=== PATIENT | female | born 1980 ===

== ENCOUNTER 2018-09-03 11:26 | Emergency (ER) | payer OTHER ==
[2018-09-03] MEDS ORDERED: Sodium Chloride 0.9% 1,000 ML IV STA (12:27)
[2018-09-03] MEDS ORDERED: Albuterol-Ipratrop 3 mg / 0.5 (3 ml) UD IH STA (12:27)
--- NOTE | 2018-09-03 12:51 | ED PDOC ---
HPI: SOB/CHF/COPD Time Seen by Provider: 09/03/18 11:52 Chief Complaint (Nursing): Shortness Of Breath Chief Complaint (Provider): Shortness Of Breath History Per: Patient History/Exam Limitations: no limitations Onset/Duration Of Symptoms: Days Current Symptoms Are (Timing): Still Present Initiating Event: Exercising/Sports (hike in [place]) Additional Complaint(s): 37 y/o female presents to the ED for evaluation of chest pain and shortness of breath, onset four days ago. Patient reports of returning from [place] this past Friday where she did a strenuous hie in high altitude and has since been experiencing chest congestion and shortness of breath. Patient notes of having developed a cough while on her trip on . Patient additionally notes of having lower extremity swelling while on the long flight back that has since resolved. Otherwise, patient denies numbness, tingling, dizziness, confusion, throat pain, nasal congestion and rhinorrhea. Patient additionally reports of taking diamox (of which she stopped while on the hike), 0.5 mg of a steroid, Suzan and an antibiotic. Patient notes of initially being evaluated at an Urgent Care but was sent here for further evaluation. PMD: no provider Past Medical History Reviewed: Historical Data, Nursing Documentation, Vital Signs Primary Care Provider: FAMILY PROVIDER,NO - Medical History PMH: No Chronic Diseases - Surgical History Surgical History: No Surg Hx - Family History Family History: States: Unknown Family Hx - Living Arrangements Living Arrangements: With Family - Home Medications Home Medications: Ambulatory Orders Medication Instructions Recorded Albuterol Sulfate [Proair Hfa] 0.09 mg IH Q6H PRN #2 inh 09/03/18 Benzonatate [Tessalon Perles] 100 mg PO BID PRN 5 Days sgl 09/03/18 predniSONE [predniSONE Tab] 20 mg PO BID 5 Days tab 09/03/18 - Allergies Allergies/Adverse Reactions: Allergies Allergy/AdvReac Type Severity Reaction Status Date / Time No Known Allergies Allergy Verified 09/03/18 11:46 Review of Systems ROS Statement: Except As Marked, All Systems Reviewed And Found Negative ENT: Negative for: Nose Discharge, Nose Congestion, Throat Pain Cardiovascular: Positive for: Chest Pain (congestion) Respiratory: Positive for: Cough, Shortness of Breath Neurological: Negative for: Numbness (or tingling), Confusion, Dizziness Physical Exam - Reviewed Nursing Documentation Reviewed: Yes Vital Signs Reviewed: Yes - Physical Exam Appears: Positive for: No Acute Distress Head Exam: Positive for: ATRAUMATIC, NORMOCEPHALIC Skin: Positive for: Normal Color, Warm, Dry Eye Exam: Positive for: Normal appearance, EOMI, PERRL ENT: Positive for: Normal ENT Inspection Neck: Positive for: Normal, Painless ROM, Supple Cardiovascular/Chest: Positive for: Regular Rate, Rhythm. Negative for: Murmur Respiratory: Positive for: Normal Breath Sounds. Negative for: Respiratory Distress Gastrointestinal/Abdominal: Positive for: Normal Exam, Soft. Negative for: Tenderness Back: Positive for: Normal Inspection. Negative for: L CVA Tenderness, R CVA Tenderness, Vertebral Tenderness Extremity: Positive for: Normal ROM. Negative for: Pedal Edema, Deformity Neurological/Psych: Positive for: Awake, Alert, Oriented (x3). Negative for: Motor/Sensory Deficits - Laboratory Results Result Diagrams: 09/03/18 12:30 09/03/18 12:30 - ECG ECG: Positive for: Interpreted By Me, Viewed By Me ECG Rhythm: Positive for: Normal QRS, Normal ST Segment, Sinus Rhythm - Radiology X-Ray: Interpreted by Me, Viewed By Me X-Ray Interpretation: No Acute Disease - CT Scan/US us Other Rad Studies (CT/US): Read By Radiologist Other Rad Interpretation: no acute - Progress ED Course And Treament: 1400: High altitude pulmonary edema not likely in pt. as pt. is not in altitude currently and last was Friday. Rapid improvement with descent is another important clue to the diagnosis of HAPE and pt. symptoms persist. Pt. lungs cta. Ct chest pending. 1450: Dr. Marina to fu on cpk and cta. Pt. feels better with the tx. AAOx3. If cta and cpk neg, pt. to be dc on prednisone, tesalon pearles, and albuterol inhaler. Medical Decision Making Medical Decision Making: Time: 1229 Impression: Chest Pain Plan: -- ABG -- CT Angio Chest PE Protocol -- EKG -- EKG -- B-Type Natriuretic Peptide -- CMP -- Troponin I -- CBC with Differentials -- PTT -- Prothrombin Time -- CXR Portable -- Duoneb 3mg/0.5mg (3ml) UD 3ml IH -- Sodium Chloride 0.9% IV 1000 mls/hr -- SOLU-Medrol 125 mg IVP -- Tessalon Perles 100 mg PO -- Peak Flow Pre/Post Tx -- US Duplex Extremity Vein Bilaterally Scribe Attestation: Documented by Katya Zavala, acting as a scribe Hernandez Modi MD. Provider Scribe Attestation: All medical record entries made by the Scribe were at my direction and personally dictated by me. I have reviewed the chart and agree that the record accurately reflects my personal performance of the history, physical exam, medical decision making, and the department course for this patient. I have also personally directed, reviewed, and agree with the discharge instructions and disposition. Disposition - Clinical Impression Clinical Impression: Dyspnea, Cough - Patient ED Disposition Is Patient to be Admitted: Transfer of Care - Disposition Referrals: Baldo García [Outside] Disposition: Transfer of Care Disposition Time: 14:56 Condition: STABLE Prescriptions: Albuterol Sulfate [Proair Hfa] 0.09 mg IH Q6H PRN #2 inh PRN Reason: Wheezing Benzonatate [Tessalon Perles] 100 mg PO BID PRN 5 Days sgl PRN Reason: Cough predniSONE [predniSONE Tab] 20 mg PO BID 5 Days tab Instructions: Shortness of Breath (Dyspnea) (DC), Cough, Adult (DC)
[2018-09-03 12:56] LABS: BASO % 0.6 % (0.0-2.0); EOS % 0.3 % (0.0-4.0); HEMOGLOBIN 11.8 g/dL (12.0-16.0); LYMPH # 0.9 K/uL (1.0-4.3); LYMPH % 12.3 % (20.0-40.0); MEAN CELL VOLUME 79.8 fl (81.0-99.0); MEAN CORPUSCULAR HEMOGLOBIN 25.9 pg (27.0-31.0); MEAN CORPUSCULAR HGB CONC 32.5 g/dL (33.0-37.0); MEAN PLATELET VOLUME 6.9 fl (7.2-11.7); MONO # 0.3 K/uL (0.0-0.8); MONO % 4.5 % (0.0-10.0); NEUT # 5.9 K/uL (1.8-7.0); NEUT % 82.3 % (50.0-75.0); RBC 4.57 Mil/uL (3.80-5.20); RED CELL DISTRIBUTION WIDTH 15.3 % (11.5-14.5); WHITE BLOOD COUNT 7.2 K/uL (4.8-10.8)
[2018-09-03 13:01] LABS: INR 1.1; PROTHROMBIN TIME 12.7 Seconds (9.8-13.1)
[2018-09-03] MEDS ORDERED: Albuterol-Ipratrop 3 mg / 0.5 (3 ml) UD ONE (13:01)
[2018-09-03 13:03] LABS: PARTIAL THROMBOPLASTIN TIME 33.4 Seconds (25.6-37.1)
[2018-09-03 13:05] LABS: ALB/GLOB RATIO 1.1 (1.0-2.1); ALBUMIN 4.6 g/dL (3.5-5.0); ALT/SGPT 47 U/L (9-52); AST/SGOT 46 U/L (14-36); BLOOD UREA NITROGEN 12 mg/dl (7-17); CALCIUM 9.5 mg/dL (8.4-10.2); GFR NON-AFRICAN AMERICAN > 60
[2018-09-03 13:16] LABS: B-TYPE NATRIURETIC PEPTIDE 67.3 pg/ml (0-450)
[2018-09-03] MEDS ORDERED: Iodixanol 320 MG/ML 100 ML BOTTLE IV ONE (13:41)
[2018-09-03] MEDS ORDERED: Sodium Chloride 0.9% 50 ML IV ONE (13:41)
[2018-09-03 13:42] VITALS: RESP 18
[2018-09-03 14:10] LABS: SQUAMOUS EPITHIAL < 1 /hpf (0-5); URINE BILIRUBIN NEGATIVE (NEGATIVE); URINE BLOOD NEGATIVE (NEGATIVE); URINE CLARITY CLEAR (Clear); URINE COLOR COLORLESS (YELLOW); URINE GLUCOSE (UA) NEG (NEGATIVE); URINE LEUKOCYTE ESTERASE NEG Leu/uL (Negative); URINE PROTEIN NEGATIVE (NEGATIVE); URINE UROBILINOGEN 0.2-1.0 mg/dL (0.2-1.0)
--- NOTE | 2018-09-03 14:23 | US ---
Date of service: 09/03/2018 PROCEDURE: Bilateral lower extremity venous duplex Doppler. HISTORY: Rule out DVT COMPARISON: None available. TECHNIQUE: Bilateral common femoral, superficial femoral, popliteal and posterior tibial veins were evaluated. Flow was assessed with color Doppler, compressibility, assessment of phasic flow and augmentation response. FINDINGS: COMMON FEMORAL VEIN: Right CFV: Unremarkable. Left CFV: Unremarkable. SUPERFICIAL FEMORAL VEIN: Right SFV: Unremarkable. Left SFV: Unremarkable. POPLITEAL VEIN: Right Popliteal: Unremarkable. Left Popliteal: Unremarkable. POSTERIOR TIBIAL VEIN: Right PTV: Unremarkable. Left PTV: Unremarkable. OTHER FINDINGS: None. IMPRESSION: No evidence of deep venous thrombosis.
--- NOTE | 2018-09-03 14:33 | RAD ---
Date of service: 09/03/2018 HISTORY: dyspnea COMPARISON: No prior. TECHNIQUE: 1 view obtained. FINDINGS: LUNGS: No active pulmonary disease. PLEURA: No significant pleural effusion identified, no pneumothorax apparent. CARDIOVASCULAR: No aortic atherosclerotic calcification present. Normal cardiac size. No pulmonary vascular congestion. OSSEOUS STRUCTURES: No significant abnormalities. VISUALIZED UPPER ABDOMEN: Normal. OTHER FINDINGS: None. IMPRESSION: No active disease.
[2018-09-03 14:41] LABS: ABG ALLEN TEST YES; ARTERIAL BLOOD GAS HCO3 27.7 mmol/L (21-28); ARTERIAL BLOOD GAS O2 SAT 100.3 % (95-98); ARTERIAL BLOOD GAS PCO2 35 mm/Hg (35-45); ARTERIAL BLOOD GAS PH 7.49 (7.35-7.45); ARTERIAL BLOOD GAS PO2 100 mm/Hg (80-100); ARTERIAL BLOOD GAS TCO2 27.8 mmol/L (22-28)
--- NOTE | 2018-09-03 15:03 | ED PDOC ---
- Laboratory Results Result Diagrams: 09/03/18 12:30 09/03/18 12:30 Lab Results: pCO2 35 mm/Hg (35-45) 09/03/18 14:35 pO2 100 mm/Hg (80-100) 09/03/18 14:35 HCO3 27.7 mmol/L (21-28) 09/03/18 14:35 ABG pH 7.49 (7.35-7.45) H 09/03/18 14:35 ABG Total CO2 27.8 mmol/L (22-28) 09/03/18 14:35 ABG O2 Saturation 100.3 % (95-98) H 09/03/18 14:35 ABG Base Excess 3.5 mmol/L (-2.0-3.0) H 09/03/18 14:35 Cristo Test Yes 09/03/18 14:35 ABG Potassium 4.0 mmol/L (3.6-5.2) 09/03/18 14:35 A-a O2 Difference 6.0 mm/Hg 09/03/18 14:35 Sodium 136.0 mmol/L (132-148) 09/03/18 14:35 Chloride 103.0 mmol/L (98-107) 09/03/18 14:35 Glucose 102 mg/dL (65-105) 09/03/18 14:35 Lactate 0.9 mmol/L (0.7-2.1) 09/03/18 14:35 FiO2 21.0 % 09/03/18 14:35 PT 12.7 Seconds (9.8-13.1) 09/03/18 12:30 INR 1.1 09/03/18 12:30 APTT 33.4 Seconds (25.6-37.1) 09/03/18 12:30 Troponin I < 0.0120 ng/mL (0.00-0.120) 09/03/18 12:30 NT-Pro-B Natriuret Pep 67.3 pg/ml (0-450) 09/03/18 12:30 Total Bilirubin 0.5 mg/dl (0.2-1.3) 09/03/18 12:30 AST 46 U/L (14-36) H 09/03/18 12:30 ALT 47 U/L (9-52) 09/03/18 12:30 Alkaline Phosphatase 67 U/L (38-126) 09/03/18 12:30 Total Protein 8.6 G/DL (6.3-8.2) H 09/03/18 12:30 Albumin 4.6 g/dL (3.5-5.0) 09/03/18 12:30 Globulin 4.0 gm/dL (2.2-3.9) H 09/03/18 12:30 Albumin/Globulin Ratio 1.1 (1.0-2.1) 09/03/18 12:30 Urine Color Colorless (YELLOW) 09/03/18 14:00 Urine Clarity Clear (Clear) 09/03/18 14:00 Urine pH 7.0 (5.0-8.0) 09/03/18 14:00 Ur Specific Burna < 1.005 (1.003-1.030) 09/03/18 14:00 Urine Protein Negative mg/dL (NEGATIVE) 09/03/18 14:00 Urine Glucose (UA) Neg mg/dL (NEGATIVE) 09/03/18 14:00 Urine Ketones Negative mg/dL (NEGATIVE) 09/03/18 14:00 Urine Blood Negative (NEGATIVE) 09/03/18 14:00 Urine Nitrate Negative (NEGATIVE) 09/03/18 14:00 Urine Bilirubin Negative (NEGATIVE) 09/03/18 14:00 Urine Urobilinogen 0.2-1.0 mg/dL (0.2-1.0) 09/03/18 14:00 Ur Leukocyte Esterase Neg Sandra/uL (Negative) 09/03/18 14:00 Urine RBC (Auto) < 1 /hpf (0-3) 09/03/18 14:00 Ur Squamous Epith Cells < 1 /hpf (0-5) 09/03/18 14:00 Medical Decision Making Medical Decision Making: Time: 1500 -- Patient endorsed to me by Dr. Modi, pending CTA, CPK, re-evaluation and final ER disposition. --On bedside evaluation pt feeling well and eager to be discharged. Time: 1435 CT CHEST FINDINGS: PULMONARY ARTERIES: The visualized portions of the pulmonary trunk, right and left main, lobar, segmental and proximal subsegmental branches of the pulmonary arteries are well opacified with no definitive filling defects seen to suggest acute central pulmonary embolus. Pulmonary trunk measures approximately 2.9 cm. AORTA: No acute findings. No thoracic aortic aneurysm. Ascending thoracic aorta measures approximately 2.9 cm and descending thoracic aorta measures approximately 1.9 cm. No aortic atherosclerotic calcification or mural plaque present. LUNGS: Unremarkable. No nodule, mass or pulmonary consolidation. PLEURAL SPACES: Unremarkable. No effusion or pneumothorax. HEART: Heart size upper limits of normal.. The medial and no significant pericardial effusion. LYMPH NODES: No significant mediastinal or hilar lymphadenopathy. BONES, CHEST WALL: Unremarkable. No fracture or destructive lesion OTHER FINDINGS: Unremarkable. IMPRESSION: No evidence of acute central pulmonary embolus. CPK 169 Scribe Attestation: Documented by Katya Zavala, acting as a scribe Susy Marina MD. Provider Scribe Attestation: All medical record entries made by the Scribe were at my direction and personally dictated by me. I have reviewed the chart and agree that the record accurately reflects my personal performance of the history, physical exam, medical decision making, and the department course for this patient. I have also personally directed, reviewed, and agree with the discharge instructions and disposition. Disposition - Clinical Impression Clinical Impression: Dyspnea, Cough - POA Present On Arrival: None - Disposition Referrals: Anabella García [Outside] Disposition: Routine/Home Disposition Time: 16:00 Condition: STABLE Additional Instructions: FOLLOWUP WITH YOUR DOCTOR OR ANABELLA DELAROSA IN 24-48 HOURS FOR REEVALUATION Prescriptions: Albuterol Sulfate [Proair Hfa] 0.09 mg IH Q6H PRN #2 inh PRN Reason: Wheezing Benzonatate [Tessalon Perles] 100 mg PO BID PRN 5 Days sgl PRN Reason: Cough predniSONE [predniSONE Tab] 20 mg PO BID 5 Days tab Instructions: Shortness of Breath (Dyspnea) (DC), Cough, Adult (DC) Forms: [facility] ED School/Work Excuse
--- NOTE | 2018-09-03 15:45 | CT ---
Date of service: 09/03/2018 PROCEDURE: CT Chest with contrast (Pulmonary Angiogram) HISTORY: Chest pain COMPARISON: None available. TECHNIQUE: Axial computed tomography images were obtained of the chest in the pulmonary arterial phase of enhancement. Coronal and sagittal reformatted images were created and reviewed. Intravenous contrast dose: 90 cc Visipaque 320 contrast material. Radiation dose: Total exam DLP = 231.75 mGy-cm. This CT exam was performed using one or more of the following dose reduction techniques: Automated exposure control, adjustment of the mA and/or kV according to patient size, and/or use of iterative reconstruction technique. FINDINGS: PULMONARY ARTERIES: The visualized portions of the pulmonary trunk, right and left main, lobar, segmental and proximal subsegmental branches of the pulmonary arteries are well opacified with no definitive filling defects seen to suggest acute central pulmonary embolus. Pulmonary trunk measures approximately 2.9 cm. AORTA: No acute findings. No thoracic aortic aneurysm. Ascending thoracic aorta measures approximately 2.9 cm and descending thoracic aorta measures approximately 1.9 cm. No aortic atherosclerotic calcification or mural plaque present. LUNGS: Unremarkable. No nodule, mass or pulmonary consolidation. PLEURAL SPACES: Unremarkable. No effusion or pneumothorax. HEART: Heart size upper limits of normal.. The medial and no significant pericardial effusion. LYMPH NODES: No significant mediastinal or hilar lymphadenopathy. BONES, CHEST WALL: Unremarkable. No fracture or destructive lesion OTHER FINDINGS: Unremarkable. IMPRESSION: No evidence of acute central pulmonary embolus.
[2018-09-03 16:36] VITALS: BP 119/71; PULSE 70; O2SAT 100
[2018-09-03 16:38] VITALS: TEMP 98
--- NOTE | 2018-09-04 11:59 | CARD ---
APPROVED REPORT Date of service: 09/03/2018 EKG Measurement Heart [id number] <Conclusion> Sinus bradycardia with sinus arrhythmia Otherwise normal ECG
== END 2018-09-03 17:00 | disposition home or self-care (01) ==
LOC: H.ER 11:26
DX: R06.03 Acute respiratory distress (principal); R05 Cough; J44.9 Chronic obstructive pulmonary disease, unspecified
CPT/HCPCS: 71045; 71275; 80053; 81003; 81025; 82550; 82803; 83880; 84484; 85025; 85610; 85730; 93005; 93970; 94640; 96361; 96374; 99284; J2930; J7030; Q9967